=== PATIENT | female | born 1995 | race Caucasian/White ===

== ENCOUNTER 2021-11-24 11:36 | Emergency (ER) | payer OTHER ==
[~2021-11-24] VITALS: Ht 162.6 cm; Wt 79.5 kg
[2021-11-24 11:39] VITALS: TEMP 98.6
[2021-11-24] MEDS ORDERED: NORCO 325 MG-51 TAB PO (13:01)
[2021-11-24 13:13] VITALS: BP 123/83; PULSE 85
== END 2021-11-24 13:17 | disposition home or self-care (01) ==
LOC: COL.ER 11:36
DX: S52.501A Unspecified fracture of the lower end of right radius, initial encounter for closed fracture (principal); V49.40XA Driver injured in collision with unspecified motor vehicles in traffic accident, initial encounter